=== PATIENT | female | born 2005 | race African-American/Black ===

== ENCOUNTER 2025-05-12 17:27 | Emergency (ER) | payer SELFPAY ==
[2025-05-12 18:48] LABS: #Basophils 0.03 10x3/uL (0.0-0.2); #Eosinophils 0.04 10x3/uL (0.0-0.7); #Monocytes 0.76 10x3/uL (0.11-0.59); #Neutrophils 10.05 10x3/uL (1.40-6.50); %Basophils 0.2 % (0.0-1.0); %Eosinophils 0.3 % (0.0-10.0); %Lymphocytes 10.2 % (28.0-48.0); %Monocytes 6.2 % (0.0-4.0); %Neutrophils 82.5 % (31.0-61.0); Hematocrit 40.3 % (36.0-47.0); Hemoglobin 13.2 g/dL (12.0-16.0); Mean Corpuscular Hemoglobin 28.6 pg (25.0-35.0); Mean Corpuscular Volume 87.4 fL (78.0-98.0); Platelet Count 248 10x3/uL (130-400); Red Blood Cell (RBC) Count 4.61 mill/uL (4.00-5.20); White Blood Cell (WBC) Count 12.20 10x3/uL (4.8-10.8)
[2025-05-12 19:09] LABS: ALT (SGPT) Less than 7 U/L (Less than 34); AST (SGOT) 13 U/L (11-34); Albumin 3.3 g/dL (3.1-4.5); Alkaline Phosphatase 75 U/L (40-100); Anion Gap 13 mmol/L (10-20); BUN (Urea Nitrogen) 5 mg/dL (7.0-18.7); Bilirubin, Total 0.5 mg/dL (0.3-1.2); Calc. Creatinine Clearance 0 mL/min (70-130); Calcium 8.5 mg/dL (7.8-10.44); Carbon Dioxide 23 mmol/L (22-29); Chloride 103 mmol/L (98-107); Globulin 3.4 g/dL (2.4-3.5); Glucose 85 mg/dL (70-105); Potassium 4.1 mmol/L (3.5-5.1); Sodium 135 mmol/L (136-145)
[2025-05-12] MEDS ORDERED: Acetaminophen 500 MG TAB ONE (19:11)
== END 2025-05-12 21:10 | disposition home or self-care (01) ==
LOC: ERS 17:27
DX: O20.0 Threatened abortion (principal); Z3A.16 16 weeks gestation of pregnancy
CPT/HCPCS: 36415; 76856; 80053; 84702; 85025; 86900; 86901; 93976; 99284